=== PATIENT | male | born 1945 | race Caucasian/White ===

== ENCOUNTER 2019-03-10 15:00 | Inpatient (IN) | payer OTHER ==
[~2019-03-10] VITALS: Ht 165.1 cm; Wt 63.5 kg
[2019-03-19] MEDS ORDERED: LIPITOR20 MG PO (11:44)
[2019-03-19] MEDS ORDERED: METFORMIN HCL500 M3 PO (11:44)
[2019-03-19] MEDS ORDERED: ZESTRIL10 M1 PO (11:44)
[2019-03-19] MEDS ORDERED: PEPCID AC20 MG PO (11:45)
[2019-03-28] MEDS ORDERED: OXYC1TAB9 PO (13:28)
[2019-03-28] MEDS ORDERED: INTESTINEX680 M1 PO (13:28)
== END 2019-03-28 13:52 | disposition home or self-care (01) | DRG 331 ==
LOC: ADM 15:00 → EDSTATUS 03-19 10:15 → O/R 03-25 05:40 → SURH 03-25 05:40
PROVIDERS: ADMIT Surgery
PROC: 0DTF4ZZ Resection of Right Large Intestine, Percutaneous Endoscopic Approach (ICD-10-PCS; principal; 2019-03-25 17:15)
DX: D12.0 Benign neoplasm of cecum (principal); K63.89 Other specified diseases of intestine; I10 Essential (primary) hypertension; E11.9 Type 2 diabetes mellitus without complications; Z79.4 Long term (current) use of insulin

== ENCOUNTER 2020-06-20 07:13 | Day surgery (SDC) | payer OTHER ==
[~2020-06-20 07:13] MED LIST: INTESTINEX680 M1 PO; LIPITOR20 MG PO; METFORMIN HCL500 M3 PO; OXYC1TAB9 PO; PEPCID AC20 MG PO; ZESTRIL10 M1 PO
== END 2020-06-20 12:15 | disposition home or self-care (01) ==
LOC: AMB-ENDOS 07:13
PROVIDERS: ATTEND Surgery
DX: K62.89 Other specified diseases of anus and rectum (principal); K64.8 Other hemorrhoids; Z20.822 Contact with and (suspected) exposure to COVID-19